=== PATIENT | female | born 1990 | race Caucasian/White ===

== ENCOUNTER 2018-08-14 16:48 | Emergency (ER) | END 2018-08-14 19:30 | disposition home or self-care (01) ==

== ENCOUNTER 2018-10-20 13:28 | Emergency (ER) | payer OTHER ==
[~2018-10-20] VITALS: Wt 67.0 kg
[~2018-10-20 13:28] MED LIST: HYDR-4011 PO; ONDA4TAB14 PO
[2018-10-20 13:30] VITALS: BP 153/68; PULSE 99; RESP 18
[2018-10-20] MEDS ORDERED: KETOROLAC 30 MG INJ IM STA (15:37)
[2018-10-20] MEDS ORDERED: ONDANSETRON (ODT) 4 MG TAB ODT STA (15:37)
[2018-10-20] MEDS ORDERED: HYDR-4011 PO (17:36)
[2018-10-20] MEDS ORDERED: TAMS-14 PO (17:36)
[2018-10-20] MEDS ORDERED: TYL500 PO (17:36)
[2018-10-20] MEDS ORDERED: IBUP-1542 PO (17:36)
--- NOTE | 2018-10-20 21:56 | ERD ---
ER Documentation Chief Complaint Chief Complaint LOWER BACK PAIN HPI 28-year-old female presents for low back pain times 3 hours. Patient does have history of kidney stones. The low back pain is noted to be on the left side and left flank area. Pain is noted to be 8 out of 10, described as sharp and constant. Patient has been having some vomiting. She denies any fever or chills. Denies chest pain or shortness of breath. Denies recent back procedure, denies recent infection. ROS All systems reviewed and are negative except as per history of present illness. Medications Home Meds Active Scripts Hydrocodone/Acetaminophen ([place] 5-325 Tablet) 1 Each Tablet, 1 TAB PO Q6H PRN for PAIN, #10 TAB Prov:TROY LEE DO 10/20/18 Acetaminophen* (Tylenol*) 500 Mg Tab, 500 MG PO Q4H PRN for MILD PAIN LEVEL 1-3, #30 TAB Prov:TROY LEE DO 10/20/18 Ibuprofen* (Motrin*) 600 Mg Tab, 600 MG PO Q6H PRN for PAIN AND OR ELEVATED TEMP, #30 TAB Prov:TROY LEE 10/20/18 Tamsulosin Hcl* (Flomax*) 0.4 Mg Cap.er.24h, 0.4 MG PO DAILY for kidney stone, #30 CAP Prov:TROY LEE DO 10/20/18 Ondansetron (Ondansetron Odt) 4 Mg Tab.rapdis, 4 MG PO Q6H PRN for NAUSEA AND/OR VOMITING, #20 TAB Prov:MAIKOL MILLS PA-C 06/26/18 Hydrocodone/Acetaminophen ([place] 5-325 Tablet) 1 Each Tablet, 1 TAB PO Q6H PRN f or PAIN, #20 TAB Prov:MAIKOL MILLS PA-C 06/26/18 Allergies Allergies: Coded Allergies: No Known Allergy (Unverified , 08/15/18) PMhx/Soc Medical and Surgical Hx: pt denies Medical Hx, pt denies Surgical Hx Hx Alcohol Use: No Hx Substance Use: No Hx Tobacco Use: No Smoking Status: Never smoker Physical Exam Vitals Vital Signs Date Temp Pulse Resp B/P (MAP) Pulse Ox O2 O2 Flow FiO2 Time Delivery Rate 10/20/18 98.1 99 18 153/68 99 13:30 (96) Physical Exam Const: No acute distress Resp: Clear to auscultation bilaterally Cardio: Regular rate and rhythm, no murmurs, bilateral dorsalis pedis pulses intact Abd: Soft, non tender, non distended. Normal bowel sounds Skin: No petechiae or rashes Back: Low back tenderness to palpation mostly on the left paravertebral muscle, left flank tenderness to palpation Ext: No cyanosis, or edema Neur: Awake and alert, bilateral lower extremity sensation intact Psych: Normal Mood and Affect Results 24 hrs Laboratory Tests Test 10/20/18 15:44 10/20/18 15:45 10/20/18 16:08 10/20/18 16:10 Sodium Level 139 mmol/L Potassium Level 3.8 mmol/L Chloride Level 100 mmol/L Carbon Dioxide 22 mmol/L Level Anion Gap 17 Blood Urea Nitrogen 13 mg/dl Creatinine 0.89 mg/dl Est Glomerular > 60 mL/min Filtrat Rate mL/min Glucose Level 113 mg/dl Calcium Level 10.3 mg/dl Total Bilirubin 0.6 mg/dl Direct Bilirubin 0.00 mg/dl Indirect Bilirubin 0.6 mg/dl Aspartate Amino 30 IU/L Transf (AST/SGOT) Alanine 39 IU/L Aminotransferase (A LT/SGPT) Alkaline 90 IU/L Phosphatase Total Protein 8.6 g/dl Albumin 4.9 g/dl Globulin 3.70 g/dl Albumin/Globulin 1.32 Ratio Lipase 79 U/L White Blood Count 15.3 10^3/ul Red Blood Count 4.87 10^6/ul Hemoglobin 15.0 g/dl Hematocrit 42.9 % Mean Corpuscular 88.1 fl Volume Mean Corpuscular 30.8 pg Hemoglobin Mean Corpuscular 35.0 g/dl Hemoglobin Concent Red Cell 12.6 % Distribution Width Platelet Count 298 10^3/UL Mean Platelet 11.4 fl Volume Immature 0.600 % Granulocytes % Neutrophils % 79.7 % Lymphocytes % 13.1 % Monocytes % 6.1 % Eosinophils % 0.1 % Basophils % 0.4 % Nucleated Red Blood 0.0 /100WBC Cells % Immature 0.090 10^3/ul Granulocytes # Neutrophils # 12.2 10^3/ul Lymphocytes # 2.0 10^3/ul Monocytes # 0.9 10^3/ul Eosinophils # 0.0 10^3/ul Basophils # 0.1 10^3/ul Nucleated Red Blood 0.0 10^3/ul Cells # Bedside Urine pH 8.5 (LAB) Bedside Urine 2+ Protein (LAB) Bedside Urine Negative Glucose (UA) Bedside Urine 4+ Ketones (LAB) Bedside Urine Blood 3+ Bedside Urine Negative Nitrite (LAB) Bedside Urine Negative Leukocyte Esterase (L POC Beta HCG, NEGATIVE Qualitative Current Medications Medications Dose Sig/Lindsay Start Time Status Last (Trade) Ordered Route PRN Stop Time Admin Dose Reason Admin Ketorolac 30 mg ONCE STAT 10/20/18 DC 10/20/18 Tromethamine IM 15:37 16:17 (Toradol) 10/20/18 15:38 Ondansetron 4 mg ONCE STAT 10/20/18 DC 10/20/18 HCl (Zofran ODT 15:37 15:51 Odt) 10/20/18 15:38 Procedures/MDM Medical Decision Making: Differential diagnosis includes but not limited to muscle strain, ligamentous sprain, epidural abscess, osteomyelitis, osteoarthritis, herniated disc, compression fracture, aortic aneurysm, kidney stone, pyelonephritis, pancreatitis. Patient appeared well on physical examination. Nontoxic appearing. Lab: CBC showed elevated WBC of 15, no anemia noted CMP showed normal electrolytes, normal renal and liver function UA was negative for infection Urine test was negative Imaging: CT abdomen pelvis without contrast showed mild to moderate left hydroureter with a 5 mm left renal stone at the UVJ and a 2 mm nonobstructing right renal stone There is a stone appears to be noninfected Patient felt stable enough for outpatient management. ED course: Patient was given Toradol and Zofran. Symptoms improved with treatment. Prescription(s): Patient given prescription for [place], Flomax, Motrin, Tylenol. Patient advised to follow up with PCP in 1-2 days. Possible need for referral to urology if the pain is not improved. Patient advised to return to ED for new or worsening symptoms. Patient stable on discharge from the ED. Disclaimer: Inadvertent spelling and grammatical errors are likely due to EHR/dictation software use and do not reflect on the overall quality of patient care. Also, please note that the electronic time recorded on this note does not necessarily reflect the actual time of the patient encounter. Departure Diagnosis: Primary Impression: Nephrolithiasis Condition: Fair Patient Instructions: Kidney Stone W/ Colic Referrals: COMMUNITY CLINICS YOU HAVE RECEIVED A MEDICAL SCREENING EXAM AND THE RESULTS INDICATE THAT YOU DO NOT HAVE A CONDITION THAT REQUIRES URGENT TREATMENT IN THE EMERGENCY DEPARTMENT. FURTHER EVALUATION AND TREATMENT OF YOUR CONDITION CAN WAIT UNTIL YOU ARE SEEN IN YOUR DOCTORS OFFICE WITHIN THE NEXT 1-2 DAYS. IT IS YOUR RESPONSIBILITY TO MAKE AN APPOINTMENT FOR FOLOW-UP CARE. IF YOU HAVE A PRIMARY DOCTOR --you should call your primary doctor and schedule an appointment IF YOU DO NOT HAVE A PRIMARY DOCTOR YOU CAN CALL OUR PHYSICIAN REFERRAL HOTLINE AT IF YOU CAN NOT AFFORD TO SEE A PHYSICIAN YOU CAN CHOSE FROM THE FOLLOWING [facility] [address] [facility]. [facility] [address] [facility]. [facility] [address] [facility]. [facility] [address] [facility] [facility] [address] [facility]. [facility]. [address] Additional Instructions: Call your primary care doctor TOMORROW for an appointment during the next 1-2 days.See the doctor sooner or return here if your condition worsens before your appointment time. TROY LEE DO Oct 20, 2018 21:56
[2018-11-02] MEDS ORDERED: NAPR-985 PO (12:11)
[2018-11-02] MEDS ORDERED: ONDA4TAB14 PO (12:11)
== END 2018-10-20 17:53 | disposition home or self-care (01) ==
LOC: FTE 13:28
DX: N20.0 Calculus of kidney (principal)
CPT/HCPCS: 36415; 74176; 80053; 81003; 81025; 83690; 85025; 96372; J1885; Z7502; Z7610